=== PATIENT | female | born 1980 | race Caucasian/White ===

== ENCOUNTER 2018-02-15 08:23 | Emergency (ER) | payer SELFPAY ==
[2018-02-15] MEDS ORDERED: DICYCLOMINE HCL 20 MG TABLET PO ONE (09:18)
--- NOTE | 2018-02-15 09:20 | ER Document Report ---
ED Medical Screen (RME) - General Chief Complaint: Abdominal Pain Stated Complaint: ABDOMINAL PAIN Time Seen by Provider: 02/15/18 09:13 Notes: Patient is a 37-year-old female that presents to the emergency department for chief complaint of lower abdominal pain. Patient states that this started yesterday, when she was at work, sharp pain in the mid lower abdomen, suprapubic region, but it has been ongoing since then. Denies nausea, vomiting or diarrhea or urinary symptoms. 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 ROS: Other than noted above, the 12 point review of systems was reviewed with the patient and were negative, all pertinent findings are included in the HPI. PHYSICAL EXAMINATION: Vital signs reviewed. GENERAL: Well-appearing, well-nourished and in no acute distress. HEAD: Atraumatic, normocephalic. EYES: Pupils equal round extraocular movements intact, conjunctiva are normal. ENT: Nares patent NECK: Normal range of motion CV: Heart regular rate and rhythm LUNGS: No respiratory distress Musculoskeletal: Normal range of motion NEUROLOGICAL: Normal speech PSYCH: Normal mood, normal affect. MDM: Patient seen and examined for rapid initial assessment. Vital signs reviewed. A comprehensive ED assessment and evaluation of the patient, analysis of test results and completion of the medical decision making process will be conducted by additional ED providers. *Note is created using voice recognition software and may contain spelling, syntax or grammatical errors. TRAVEL OUTSIDE OF THE [place] IN LAST 30 DAYS: No - Related Data Allergies/Adverse Reactions: No Known Allergies Allergy (Verified 02/15/18 09:17) Past Medical History - Social History Chew tobacco use (# tins/day): No Frequency of alcohol use: None Drug Abuse: None - Past Medical History Cardiac Medical History: Denies: Hx Coronary Artery Disease Pulmonary Medical History: Denies: Hx Asthma Neurological Medical History: Reports: Hx Migraine Renal/ Medical History: Denies: Hx Peritoneal Dialysis Malignancy Medical History: Reports: Hx Cervical Cancer Past Surgical History: Reports: Hx Hysterectomy - Still has her ovaries - Immunizations Hx Diphtheria, Pertussis, Tetanus Vaccination: Yes Physical Exam - Vital signs Vitals: Temp Pulse Resp BP Pulse Ox 97.6 F 81 18 134/90 H 97 02/15/18 08:29 02/15/18 08:29 02/15/18 08:29 02/15/18 08:29 02/15/18 08:29 Course - Vital Signs Vital signs: Temp Pulse Resp BP Pulse Ox 97.6 F 81 18 134/90 H 97 02/15/18 08:29 02/15/18 08:29 02/15/18 08:29 02/15/18 08:29 02/15/18 08:29
[2018-02-15 10:05] LABS: ABSOLUTE BASOPHILS # (AUTO) 0.1 10^3/uL (0.0-0.2); ABSOLUTE EOSINOPHILS # (AUTO) 0.1 10^3/uL (0.0-0.6); ABSOLUTE LYMPHOCYTES (AUTO) 1.9 10^3/uL (0.5-4.7); ABSOLUTE MONOCYTES (AUTO) 0.6 10^3/uL (0.1-1.4); ABSOLUTE NEUT (AUTO) 3.8 10^3/uL (1.7-8.2); EOSINOPHILS % (AUTO) 1.7 % (0-6); HEMATOCRIT 43.6 % (36.0-47.0); LYMPHOCYTES % (AUTO) 29.6 % (13-45); MEAN CORPUSCULAR HEMOGLOBIN 32.3 pg (27.0-33.4); MEAN CORPUSCULAR HGB CONC 34.5 g/dL (32.0-36.0); MEAN CORPUSCULAR VOLUME 94 fl (80-97); MONOCYTES % (AUTO) 8.7 % (3-13); PLATELET COUNT 302 10^3/uL (150-450); RED BLOOD COUNT 4.65 10^6/uL (3.72-5.28); RED CELL DISTRIBUTION WIDTH 12.8 % (11.5-14.0); TOTAL CELLS COUNTED % (AUTO) 100 %; WHITE BLOOD COUNT 6.4 10^3/uL (4.0-10.5)
--- NOTE | 2018-02-15 10:16 | ER Document Report ---
ED General - General Chief Complaint: Abdominal Pain Stated Complaint: ABDOMINAL PAIN Time Seen by Provider: 02/15/18 09:13 Mode of Arrival: Ambulatory Information source: Patient Notes: 37-year-old female presents emergency department with complaints of lower abdominal pain. She states that it started yesterday at work. She describes the pain as a sharp and stabbing sensation in the suprapubic area. She denies any radiation of the pain. She denies any leg eating or exacerbating factors. She denies any associated nausea, vomiting, diarrhea, dysuria, hematuria, increased urgency, increased frequency, vaginal bleeding, vaginal discharge. Patient states that she has had a hysterectomy. TRAVEL OUTSIDE OF THE [place] IN LAST 30 DAYS: No - HPI Onset: Yesterday Onset/Duration: Sudden Quality of pain: Stabbing, Throbbing Severity: Moderate Associated symptoms: None Exacerbated by: Denies Relieved by: Denies Similar symptoms previously: No Recently seen / treated by doctor: No - Related Data Allergies/Adverse Reactions: No Known Allergies Allergy (Verified 02/15/18 09:17) Past Medical History - General Information source: Patient - Social History Smoking Status: Current Every Day Smoker Chew tobacco use (# tins/day): No Frequency of alcohol use: None Drug Abuse: None Family History: Reviewed & Not Pertinent Patient has suicidal ideation: No Patient has homicidal ideation: No - Past Medical History Cardiac Medical History: Denies: Hx Coronary Artery Disease Pulmonary Medical History: Denies: Hx Asthma Neurological Medical History: Reports: Hx Migraine Renal/ Medical History: Denies: Hx Peritoneal Dialysis Malignancy Medical History: Reports: Hx Cervical Cancer Past Surgical History: Reports: Hx Hysterectomy - Still has her ovaries - Immunizations Hx Diphtheria, Pertussis, Tetanus Vaccination: Yes Review of Systems - Review of Systems Constitutional: No symptoms reported EENT: No symptoms reported Cardiovascular: No symptoms reported Respiratory: No symptoms reported Gastrointestinal: Abdominal pain Genitourinary: No symptoms reported Female Genitourinary: No symptoms reported Musculoskeletal: No symptoms reported Skin: No symptoms reported Hematologic/Lymphatic: No symptoms reported Neurological/Psychological: No symptoms reported -: Yes All other systems reviewed and negative Physical Exam - Vital signs Vitals: Temp Pulse Resp BP Pulse Ox 97.6 F 81 18 134/90 H 97 02/15/18 08:29 02/15/18 08:29 02/15/18 08:29 02/15/18 08:29 02/15/18 08:29 - Notes Notes: PHYSICAL EXAMINATION: GENERAL: Well-appearing, well-nourished and in no acute distress. HEAD: Atraumatic, normocephalic. EYES: Pupils equal round and reactive to light, extraocular movements intact, conjunctiva are normal. ENT: Nares patent, oropharynx clear without exudates. Moist mucous membranes. NECK: Normal range of motion, supple without lymphadenopathy LUNGS: Breath sounds clear to auscultation bilaterally and equal. No wheezes rales or rhonchi. HEART: Regular rate and rhythm without murmurs ABDOMEN: Soft, suprapubic tenderness to palpatoin. No rebound or guarding. Female : deferred Musculoskeletal: Normal range of motion, no pitting or edema. No cyanosis. NEUROLOGICAL: Cranial nerves grossly intact. Normal speech, normal gait. Normal sensory, motor exams PSYCH: Normal mood, normal affect. SKIN: Warm, Dry, normal turgor, no rashes or lesions noted. Course - Re-evaluation Re-evalutation: 02/15/18 12:49 Patient is complaining of being hungry. She still having her abdominal pain. I told the patient that she cannot eat until we further assess her. A CT of the abdomen pelvis was ordered. Patient wants to leave AGAINST MEDICAL ADVICE now. Patient states that she is hungry and wants to go eat. Patient is competent to make medical decisions. She understands the risks of leaving AGAINST MEDICAL ADVICE. She understands that her condition may worsen or she may . Patient instructed to take [id number] medication as needed for symptom relief, to follow-up with her primary care physician this week, and to return for worsening symptoms. - Vital Signs Vital signs: Temp Pulse Resp BP Pulse Ox 97.6 F 81 18 134/90 H 97 02/15/18 08:29 02/15/18 08:29 02/15/18 08:29 02/15/18 08:29 02/15/18 08:29 - Laboratory Result Diagrams: 02/15/18 09:32 02/15/18 09:32 Laboratory results interpreted by me: 02/15/18 09:32 Calcium 10.3 H Discharge - Discharge Clinical Impression: Abdominal pain Qualifiers: Abdominal location: lower abdomen, unspecified Qualified Code(s): R10.30 - Lower abdominal pain, unspecified Disposition: AGAINST MEDICAL ADVICE
[2018-02-15 10:20] LABS: ALANINE AMINOTRANSFERASE 14 U/L (9-52); ALBUMIN 4.8 g/dL (3.5-5.0); ALKALINE PHOSPHATASE 39 U/L (38-126); ANION GAP 12 (5-19); ASPARTATE AMINO TRANSFERASE 19 U/L (14-36); BILIRUBIN,DIRECT 0.3 mg/dL (0.0-0.4); BLOOD UREA NITROGEN 13 mg/dL (7-20); CALCIUM 10.3 mg/dL (8.4-10.2); CARBON DIOXIDE 28 mmol/L (22-30); CHLORIDE 104 mmol/L (98-107); GLUCOSE 95 mg/dL (75-110); LIPASE 58.1 U/L (23-300); POTASSIUM 4.8 mmol/L (3.6-5.0); SODIUM 143.7 mmol/L (137-145); TOTAL PROTEIN 7.9 g/dL (6.3-8.2)
[2018-02-15 10:27] LABS: APPEARANCE,URINE SLIGHTLY-CLOUDY; BILIRUBIN,URINE NEGATIVE (NEGATIVE); COLOR,URINE YELLOW; GLUCOSE, URINE NEGATIVE (NEGATIVE); KETONES,URINE NEGATIVE (NEGATIVE); LEUKOCYTE ESTERASE,URINE NEGATIVE (NEGATIVE); NITRITE,URINE NEGATIVE (NEGATIVE); PROTEIN,URINE NEGATIVE (NEGATIVE); URINE SPECIFIC GRAVITY 1.012; UROBILINOGEN,URINE NEGATIVE mg/dL (<2.0)
--- NOTE | 2018-02-15 14:40 | RADIOLOGY REPORT (SQ) ---
EXAM DESCRIPTION: CT ABD/PELVIS WITH IV ONLY COMPLETED DATE/TIME: 02/15/2018 1:44 pm REASON FOR STUDY: abdominal pain COMPARISON: 09/20/2015 TECHNIQUE: CT scan of the abdomen and pelvis performed using helical scanning technique with dynamic intravenous contrast injection. No oral contrast. Images reviewed with lung, soft tissue, and bone windows. Reconstructed coronal and sagittal MPR images reviewed. Delayed images for evaluation of the urinary system also acquired. All images stored on PACS. All CT scanners at this facility use dose modulation, iterative reconstruction, and/or weight based d osing when appropriate to reduce radiation dose to as low as reasonably achievable (ALARA). [facility]: Dose Right [facility]: CareDose [facility]: Dose Right [facility]: Teradose 4D [facility]: [place] CONTRAST TYPE AND DOSE: contrast/concentration: Isovue 350.00 mg/ml; Total Contrast Delivered: 87.0 ml; Total Saline Delivered: 45.1 ml RENAL FUNCTION: BUN 13; creatinine 0.81 RADIATION DOSE: CT Rad equipment meets quality standard of care and radiation dose reduction techniq ues were employed. CTDIvol: 7.8 - 10.9 mGy. DLP: 1030 mGy-cm.. LIMITATIONS: None. FINDINGS: LOWER CHEST: No significant findings. No nodules or infiltrates. LIVER: Normal size. No masses. No dilated ducts. SPLEEN: Normal size. No focal lesions. PANCREAS: No masses. No significant calcifications. No adjacent inflammation or peripancreatic fluid collections. Pancreatic duct not dilated. GALLBLADDER: No identified stones by CT criteria. No inflammatory changes to suggest cholecystitis. ADRENAL GLANDS: No significant masses or asymmetry. RIGHT KIDNEY AND URETER: No solid masses. No significant calcifications. No hydronephrosis or hyd roureter. LEFT KIDNEY AND URETER: No solid masses. No significant calcifications. No hydronephrosis or hydr oureter. AORTA AND VESSELS: No aneurysm. No dissection. Renal arteries, SMA, celiac without stenosis. RETROPERITONEUM: No retroperitoneal adenopathy, hemorrhage or masses. BOWEL AND PERITONEAL CAVITY: No masses or inflammatory changes. No free fluid or peritoneal masses. APPENDIX: Normal. PELVIS: No free fluid. No lymphadenopathy. The bladder appears normal for modality. ABDOMINAL WALL: No masses. No hernias. BONES: No significant or acute findings. OTHER: No other significant finding. IMPRESSION: NO SIGNIFICANT OR ACUTE FINDING IN THE ABDOMEN OR PELVIS ON CT SCAN WITH IV CONTRAST. TECHNICAL DOCUMENTATION: JOB ID: [id number] Quality ID # [id number]: Final reports with documentation of one or more dose reduction techniques (e.g., Au tomated exposure control, adjustment of the mA and/or kV according to patient size, use of iterative reconstruction technique) 2010 [employer]- All Rights Reserved Reading location - IP/workstation name: [email or web address]
[2018-02-15 15:26] VITALS: BP 120/80
== END 2018-02-15 15:42 | disposition home or self-care (01) ==
LOC: ER 08:23
DX: R10.30 Lower abdominal pain, unspecified (principal); F17.200 Nicotine dependence, unspecified, uncomplicated; Z90.710 Acquired absence of both cervix and uterus; Z85.41 Personal history of malignant neoplasm of cervix uteri
CPT/HCPCS: 99284; 36415; 83690; 85025; 81025; 80053; 81001; 74177; J3490

== ENCOUNTER 2018-02-24 05:42 | Emergency (ER) | payer SELFPAY ==
[2018-02-24] MEDS ORDERED: LIDOCAINE 2% VISCOUS SOLN 20 ML UDCUP PO ONE (06:33)
[2018-02-24] MEDS ORDERED: METOCLOPRAMIDE HCL ORAL SOLN 10 MG/10 ML UDCUP PO ONE (06:33)
[2018-02-24] MEDS ORDERED: MAG HYDROX/AL HYDROX/SIMETH SUSP 30 ML UDCUP PO ONE (06:33)
--- NOTE | 2018-02-24 06:56 | EKG REPORT ---
SEVERITY:- NORMAL ECG - SINUS RHYTHM : Confirmed by: Gayb De Jesus 24-Feb-2018 06:55:53
--- NOTE | 2018-02-24 07:29 | ER Document Report ---
ED General - General Chief Complaint: Chest Pain Stated Complaint: CHEST PAIN, POSSIBLE HEART BURN Time Seen by Provider: 02/24/18 06:25 TRAVEL OUTSIDE OF THE [place] IN LAST 30 DAYS: No - HPI Patient complains to provider of: Heartburn Onset: Other - 37-year-old female who is a every other day for beer drinker as well as a cigarette smoker the presents for evaluation of what she describes as heartburn over the last week. She has had a couple episodes of heartburn in the past none of which have been this bad, she notes that 4 days ago it did make her feel like she had to vomit as well. Her symptoms worsened yesterday and the symptoms persisted despite her starting to take Prilosec 3 days ago. She not take anything to try and help with this other than that. She is never treated her heartburn in the past. She never been seen for this before. She denies any chest pain, shortness of breath, lightheadedness, fevers, chills, rashes diarrhea constipation or dysuria. - Related Data Allergies/Adverse Reactions: No Known Allergies Allergy (Verified 02/15/18 09:17) Past Medical History - General Information source: Patient - Social History Smoking Status: Current Every Day Smoker Smoking Education Provided: Yes Frequency of alcohol use: Occasional Drug Abuse: None Family History: Reviewed & Not Pertinent Patient has suicidal ideation: No Patient has homicidal ideation: No - Past Medical History Cardiac Medical History: Denies: Hx Coronary Artery Disease Pulmonary Medical History: Denies: Hx Asthma Neurological Medical History: Reports: Hx Migraine Renal/ Medical History: Denies: Hx Peritoneal Dialysis Malignancy Medical History: Reports: Hx Cervical Cancer Past Surgical History: Reports: Hx Hysterectomy - Immunizations Hx Diphtheria, Pertussis, Tetanus Vaccination: Yes Review of Systems - Review of Systems -: Yes All other systems reviewed and negative Physical Exam - Vital signs Vitals: Temp Pulse Resp BP Pulse Ox 97.7 F 81 16 125/99 H 99 02/24/18 05:50 02/24/18 05:50 02/24/18 05:50 02/24/18 05:50 02/24/18 05:50 - General General appearance: Appears well, Alert - HEENT Head: Normocephalic, Atraumatic Eyes: Normal Pupils: PERRL - Respiratory Respiratory status: No respiratory distress Chest status: Nontender Breath sounds: Normal Chest palpation: Normal - Cardiovascular Rhythm: Regular Heart sounds: Normal auscultation Murmur: No - Abdominal Inspection: Normal Distension: No distension Tenderness: Tender - Tenderness in the left upper quadrant - Back Back: Normal, Nontender - Extremities General upper extremity: Normal inspection, Nontender, Normal color, Normal ROM , Normal temperature General lower extremity: Normal inspection, Nontender, Normal color, Normal ROM , Normal temperature, Normal weight bearing. No: Daquan's sign - Neurological Neuro grossly intact: Yes Cognition: Normal Orientation: AAOx4 Jhon Coma Scale Eye Opening: Spontaneous [place] Coma Scale Verbal: Oriented Jhon Coma Scale Motor: Obeys Commands [place] Coma Scale Total: 15 Speech: Normal Motor strength normal: LUE, RUE, LLE, RLE Sensory: Normal - Psychological Associated symptoms: Normal affect, Normal mood Course - Re-evaluation Re-evalutation: 02/24/18 08:10 This 37-year-old woman presents for evaluation of probable reflux. She notes that she is been using Prilosec which has not helped that much. She is a smoker and a drinker. She is never had any cardiac events in the past, has no other health problems that she knows of. On examination she is tender left upper quadrant, has no chest tenderness has normal cardiopulmonary examination. I discussed with the patient the potential for this to represent underlying cardiac etiology, to evaluate such we would do IV x-ray EKG. She notes that she does not wish to pursue this at this time, she would like to treat this is reflux. We will administer GI cocktail and reassess. Following a ministration a GI cocktail patient says that her symptoms have improved greatly. She would like to try treatment in the outpatient setting and defer any further workup at this time, we did discuss that this could represent a more serious underlying condition and that we have not thoroughly evaluated any other causes such as but not limited to cardiac etiology or pulmonary etiology. We will plan for this patient undergo discharge with return precautions and follow-up. She will be given a prescription for Zantac as well as Carafate and Zofran as needed for her nausea. She agreed to return in case of any worsening. Also I counseled her on the importance of alcohol cessation as well as cigarette smoking cessation. - Vital Signs Vital signs: Temp Pulse Resp BP Pulse Ox 97.7 F 81 16 125/99 H 99 02/24/18 05:50 02/24/18 05:50 02/24/18 05:50 02/24/18 05:50 02/24/18 05:50 Discharge - Discharge Clinical Impression: Reflux esophagitis, Tobacco use Gastritis Qualifiers: Gastritis type: unspecified gastritis Chronicity: unspecified Gastritis bleeding: without bleeding Qualified Code(s): K29.70 - Gastritis, unspecified, without bleeding Condition: Good Disposition: HOME, SELF-CARE Instructions: Esophagitis ([facility]), Reflux Disease (GERD) ([facility]), Sucralfate ([facility]) , Antacid Therapy ([facility]) Additional Instructions: Your seen today in the emergency department for your burning in the base of your throat making you feel nauseous. You are given medication to help with reflux. It seems to help. You should use the medications prescribed to you to help with your reflux symptoms. In case of any worsening chest pain, shortness of breath, any change in your symptoms please return to the emergency room as it could be a more serious condition. You should avoid alcohol while you are having the symptoms. You should also consider stop smoking. Schedule appointment with your primary physician in the coming week for ongoing management of your reflux symptoms. Prescriptions: Ondansetron [Zofran Odt 4 mg Tablet] 1 - 2 tab PO Q4HP PRN #10 tab.rapdis PRN Reason: Ranitidine HCl [Zantac 75 mg Tablet] 75 mg PO DAILY 30 Days #30 tablet Sucralfate [Carafate] 1 gm PO TID 20 Days #60 oral.susp Forms: Smoking Cessation Education, Return to Work
[2018-02-24 07:58] VITALS: BP 122/80
== END 2018-02-24 07:59 | disposition home or self-care (01) ==
LOC: ER 05:42
DX: K21.0 Gastro-esophageal reflux disease with esophagitis (principal); K29.70 Gastritis, unspecified, without bleeding; R07.9 Chest pain, unspecified; R12 Heartburn; F17.200 Nicotine dependence, unspecified, uncomplicated; Z90.710 Acquired absence of both cervix and uterus; Z85.41 Personal history of malignant neoplasm of cervix uteri
CPT/HCPCS: 93005; 99284; 93010; J3490

== ENCOUNTER 2018-04-14 08:11 | Observation (INO) | payer SELFPAY ==
[2018-04-14] MEDS ORDERED: ONDANSETRON HCL INJ/PF 4 MG/2 ML SDV IV ONE (08:51)
[2018-04-14] MEDS ORDERED: MORPHINE SULFATE 10 MG/ML INJ IV ONE (08:52)
[2018-04-14 09:11] LABS: ABSOLUTE BASOPHILS # (AUTO) 0.1 10^3/uL (0.0-0.2); ABSOLUTE EOSINOPHILS # (AUTO) 0.1 10^3/uL (0.0-0.6); ABSOLUTE LYMPHOCYTES (AUTO) 1.8 10^3/uL (0.5-4.7); ABSOLUTE MONOCYTES (AUTO) 0.6 10^3/uL (0.1-1.4); ABSOLUTE NEUT (AUTO) 3.3 10^3/uL (1.7-8.2); HEMATOCRIT 42.9 % (36.0-47.0); HEMOGLOBIN 14.8 g/dL (12.0-15.5); LYMPHOCYTES % (AUTO) 30.6 % (13-45); MEAN CORPUSCULAR HEMOGLOBIN 31.9 pg (27.0-33.4); MEAN CORPUSCULAR HGB CONC 34.4 g/dL (32.0-36.0); MEAN CORPUSCULAR VOLUME 93 fl (80-97); MONOCYTES % (AUTO) 9.9 % (3-13); PLATELET COUNT 277 10^3/uL (150-450); RED BLOOD COUNT 4.63 10^6/uL (3.72-5.28); RED CELL DISTRIBUTION WIDTH 12.8 % (11.5-14.0); SEGMENTED NEUTROPHILS % (AUTO) 56.5 % (42-78); TOTAL CELLS COUNTED % (AUTO) 100 %; WHITE BLOOD COUNT 5.8 10^3/uL (4.0-10.5)
[2018-04-14 09:26] LABS: ALANINE AMINOTRANSFERASE 16 U/L (9-52); ALBUMIN 4.4 g/dL (3.5-5.0); ALKALINE PHOSPHATASE 36 U/L (38-126); ANION GAP 8 (5-19); ASPARTATE AMINO TRANSFERASE 17 U/L (14-36); BILIRUBIN,DIRECT 0.3 mg/dL (0.0-0.4); BILIRUBIN,TOTAL 0.6 mg/dL (0.2-1.3); BLOOD UREA NITROGEN 13 mg/dL (7-20); CALCIUM 9.9 mg/dL (8.4-10.2); CARBON DIOXIDE 24 mmol/L (22-30); CHLORIDE 107 mmol/L (98-107); GLUCOSE 100 mg/dL (75-110); LIPASE 93.2 U/L (23-300); POTASSIUM 4.7 mmol/L (3.6-5.0)
[2018-04-14] MEDS ORDERED: SUCRALFATE SUSP 1 GM/10 ML UDCUP PO ONE (10:13)
[2018-04-14] MEDS ORDERED: FAMOTIDINE INJ/PF 20 MG/2 ML SDV IV ONE (10:13)
[2018-04-14] MEDS ORDERED: NORMAL SALINE 1000 ML 1,000 ML IV ONE ×2 (10:21→15:04)
[2018-04-14 11:51] LABS: APPEARANCE,URINE CLOUDY; BILIRUBIN,URINE NEGATIVE (NEGATIVE); COLOR,URINE YELLOW; GLUCOSE, URINE NEGATIVE (NEGATIVE); KETONES,URINE NEGATIVE (NEGATIVE); LEUKOCYTE ESTERASE,URINE NEGATIVE (NEGATIVE); NITRITE,URINE NEGATIVE (NEGATIVE); PROTEIN,URINE NEGATIVE (NEGATIVE); URINE SPECIFIC GRAVITY 1.008; UROBILINOGEN,URINE NEGATIVE mg/dL (<2.0)
[2018-04-14] MEDS ORDERED: SUCCINYLCHOLINE CHLORIDE INJ 200 MG/10 ML VIAL ONE (12:07)
[2018-04-14] MEDS ORDERED: ROCURONIUM BROMIDE INJ 50 MG/5 ML VIAL IV ONE (12:07)
--- NOTE | 2018-04-14 12:42 | RADIOLOGY REPORT (SQ) ---
EXAM DESCRIPTION: CT ABD/PELVIS WITH IV ORAL COMPLETED DATE/TIME: 04/14/2018 12:13 pm REASON FOR STUDY: RLQ pain COMPARISON: 02/15/2018 TECHNIQUE: CT scan of the abdomen and pelvis performed using helical scanning technique with dynamic intravenous contrast injection. No oral contrast. Images reviewed with lung, soft tissue, and bone windows. Reconstructed coronal and sagittal MPR images reviewed. Delayed images for evaluation of the urinary system also acquired. All images stored on PACS. All CT scanners at this facility use dose modulation, iterative reconstruction, and/or weight based d osing when appropriate to reduce radiation dose to as low as reasonably achievable (ALARA). [facility]: Dose Right [facility]: CareDose [facility]: Dose Right [facility]: Teradose 4D [facility]: [employer] CONTRAST TYPE AND DOSE: contrast/concentration: Isovue 350.00 mg/ml; Total Contrast Delivered: 88.0 ml; Total Saline Delivered: 70.0 ml RENAL FUNCTION: None required. The patient is less than 50 years old. RADIATION DOSE: CT Rad equipment meets quality standard of care and radiation dose reduction techniq ues were employed. CTDIvol: 8.6 - 11.9 mGy. DLP: 1028 mGy-cm.. LIMITATIONS: None. FINDINGS: LOWER CHEST: No significant findings. No nodules or infiltrates. LIVER: Normal size. No masses. No dilated ducts. SPLEEN: Normal size. No focal lesions. PANCREAS: No masses. No significant calcifications. No adjacent inflammation or peripancreatic fluid collections. Pancreatic duct not dilated. GALLBLADDER: Small gallstones in the gallbladder fundus with mild gallbladder wall thickening and per icholecystic fluid. The common bile duct is prominent to the ampulla without evidence of obstructing lesion. ADRENAL GLANDS: No significant masses or asymmetry. RIGHT KIDNEY AND URETER: No solid masses. No significant calcifications. No hydronephrosis or hyd roureter. LEFT KIDNEY AND URETER: No solid masses. No significant calcifications. No hydronephrosis or hydr oureter. AORTA AND VESSELS: No aneurysm. No dissection. Renal arteries, SMA, celiac without stenosis. RETROPERITONEUM: No retroperitoneal adenopathy, hemorrhage or masses. BOWEL AND PERITONEAL CAVITY: No masses or inflammatory changes. No free fluid or peritoneal masses. APPENDIX: Normal. PELVIS: No mass. Status posthysterectomy. No free fluid. Normal bladder. Multiple small cysts in t he left ovary. ABDOMINAL WALL: No masses. No hernias. BONES: No significant or acute findings. OTHER: No other significant finding. IMPRESSION: 1. Small gallstones in the gallbladder fundus with mild gallbladder wall thickening and pericholecystic fluid. Findings are concerning for acute cholecystitis. The common bile duct is pr ominent to the ampulla without evidence of obstructing lesion. 2. Normal appendix in the right lower quadrant. TECHNICAL DOCUMENTATION: JOB ID: [id number] Quality ID # [id number]: Final reports with documentation of one or more dose reduction techniques (e.g., Au tomated exposure control, adjustment of the mA and/or kV according to patient size, use of iterative reconstruction technique) 2010 [employer]- All Rights Reserved Reading location - IP/workstation name: [email or web address]
--- NOTE | 2018-04-14 13:20 | EKG REPORT ---
SEVERITY:- NORMAL ECG - SINUS RHYTHM : Confirmed by: Marcin Quezada MD 14-Apr-2018 13:20:07
--- NOTE | 2018-04-14 14:35 | RADIOLOGY REPORT (SQ) ---
EXAM DESCRIPTION: U/S ABDOMEN LTD W/DOPPLER COMPLETED DATE/TIME: 04/14/2018 2:25 pm REASON FOR STUDY: right upper quadrant pain COMPARISON: None. TECHNIQUE: Dynamic and static grayscale images acquired of the abdomen and recorded on PACS. Waleo debbie selected color Doppler and spectral images recorded. LIMITATIONS: None. FINDINGS: PANCREAS: No masses. Visualized pancreatic duct normal caliber. LIVER: No masses. Echotexture normal. LIVER VASCULATURE: Normal directional flow of the main portal vein and hepatic veins. GALLBLADDER: Gallstones. The largest shadowing calculus in the gallbladder neck measures 1.3 cm. Ge neralized gallbladder wall thickening. Small amount of pericholecystic fluid. ULTRASOUND-DETECTED NEWTON'S SIGN: Negative. INTRAHEPATIC DUCTS AND COMMON DUCT: CBD and intrahepatic ducts normal caliber. No filling defects. INFERIOR VENA CAVA: Normal flow. AORTA: No aneurysm. RIGHT KIDNEY: Normal size. Normal echogenicity. No solid or suspicious masses. No hydronephrosis. No calcifications. PERITONEAL AND RIGHT PLEURAL SPACE: No ascites or effusions. OTHER: No other significant findings. IMPRESSION: GALLSTONES. THE LARGEST CALCULUS IN THE GALLBLADDER NECK MEASURES 1.3 CM. GALLBLADDER WALL THICKENING AND PERICHOLECYSTIC FLUID. FINDINGS CONCERNING FOR ACUTE CHOLECYSTITIS. TECHNICAL DOCUMENTATION: JOB ID: [id number] [employer] All Rights Reserved Reading location - IP/workstation name: [email or web address]
--- NOTE | 2018-04-14 15:19 | ER Document Report ---
ED General - General Chief Complaint: Abdominal Pain Stated Complaint: CHEST PAIN/VOMITING Time Seen by Provider: 04/14/18 08:33 Notes: Patient is a 37-year-old female presents to the emergency department complaining of generalized right lower abdominal pain that started last night. Patient states she also vomited 7 times is denying any blood in her vomit. Patient is denying any diarrhea or fever. Patient is denying any dysuria or vaginal discharge. Past medical history: GERD, migraines Medications: Zantac, Prilosec, Excedrin Migraine, Pepto-Bismol Allergies: Bleach Surgical history: Partial hysterectomy to include her uterus TRAVEL OUTSIDE OF THE [place] IN LAST 30 DAYS: No - Related Data Allergies/Adverse Reactions: No Known Allergies Allergy (Verified 04/14/18 16:25) Past Medical History - General Information source: Patient - Social History Smoking Status: Unknown if Ever Smoked Family History: Reviewed & Not Pertinent Patient has suicidal ideation: No Patient has homicidal ideation: No - Past Medical History Cardiac Medical History: Denies: Hx Coronary Artery Disease Pulmonary Medical History: Denies: Hx Asthma Neurological Medical History: Reports: Hx Migraine Renal/ Medical History: Denies: Hx Peritoneal Dialysis Malignancy Medical History: Reports: Hx Cervical Cancer Past Surgical History: Reports: Hx Hysterectomy - Immunizations Hx Diphtheria, Pertussis, Tetanus Vaccination: Yes Review of Systems - Review of Systems Constitutional: See HPI EENT: No symptoms reported Cardiovascular: No symptoms reported Respiratory: No symptoms reported Gastrointestinal: See HPI Genitourinary: See HPI Female Genitourinary: See HPI Musculoskeletal: No symptoms reported Skin: No symptoms reported Hematologic/Lymphatic: No symptoms reported Neurological/Psychological: No symptoms reported Physical Exam - Vital signs Vitals: Temp Pulse Resp BP Pulse Ox 97.9 F 64 20 124/84 99 04/14/18 08:22 04/14/18 08:22 04/14/18 08:22 04/14/18 08:22 04/14/18 08:22 - Notes Notes: GENERAL: Alert, interacts well. No acute distress. HEAD: Normocephalic, atraumatic. EYES: Pupils equal, round, and reactive to light. Extraocular movements intact. ENT: Oral mucosa moist, tongue midline. NECK: Full range of motion. Supple. Trachea midline. LUNGS: Clear to auscultation bilaterally, no wheezes, rales, or rhonchi. No respiratory distress. HEART: Regular rate and rhythm. No murmur ABDOMEN: Soft, Non-distended. Bowel sounds present in all 4 quadrants. Generalized to right lower abdominal pain. No Nieto sign noted although minor epigastric abdominal pain noted. EXTREMITIES: Moves all 4 extremities spontaneously. No edema, normal radial and dorsalis pedis pulses bilaterally. No cyanosis. BACK: no cervical, thoracic, lumbar midline tenderness. No saddle anesthesia, normal distal neurovascular exam. NEUROLOGICAL: Alert and oriented x3. Normal speech. cranial nerves II through XII grossly intact PSYCH: Normal affect, normal mood. SKIN: Warm, dry, normal turgor. No rashes or lesions noted. Course - Re-evaluation Re-evalutation: Patient initially has a chief complaint of right lower abdominal pain and some minor epigastric pain. CT was ordered to rule out appendicitis. CT shows signs of cholecystitis. Due to patient's liver function test being within normal limits ultrasound ordered to compare and truly rule out cholecystitis. Patient has continued to be n.p.o. in the emergency room and states she overall feels a lot better. Awaiting results of ultrasound. 04/14/18 15:16 Discussed ultrasound results with surgeon Dr. Monk concerns for cholecystitis. He states he will come to the emergency room to see the patient. - Vital Signs Vital signs: Temp Pulse Resp BP Pulse Ox 98.8 F 80 18 116/66 100 04/15/18 16:14 04/15/18 18:34 04/15/18 18:34 04/15/18 16:14 04/15/18 18:34 - Laboratory Result Diagrams: 04/14/18 09:02 04/14/18 09:02 Laboratory results interpreted by me: 04/14/18 09:02 Alkaline Phosphatase 36 L Discharge - Discharge Clinical Impression: Cholecystitis Condition: Stable Disposition: ADMITTED INPATIENT Admitting Provider: Surgicalist - Dr. Monk Unit Admitted: OR
[2018-04-14] MEDS ORDERED: CEFAZOLIN 1 GM/D5W RTU 1 GM/50 ML RTUPB IV ONE (15:28)
--- NOTE | 2018-04-14 15:39 | PDOC H&P ---
History of Present Illness Patient complains of: Abdominal pain History of Present Illness: JOLEEN MONTENEGRO is a 37 year old female Presents to the emergency department at 08 100 this morning, [facility] emergency department, via ground rescue complaining of worsening abdominal pain started last night after eating associated with epigastric tenderness and some anorexia. No nausea or vomiting. She has had several episodes of similar pain not as intense over the last several months. No family history of gallbladder disease. She denies history of trauma or previous gastrointestinal problems. She does have a history of GERD. She was evaluated in the emergency department where she was found to have a CT scan of the abdomen and pelvis with IV and oral contrast showing a slightly distended gallbladder with gallbladder wall thickening. Her tenderness in the emergency department was more right lower quadrant. No pelvic or adnexal pathology seen on scan. Confirmatory ultrasonography demonstrated gallstones with normal common bile duct. Surgery was consulted and she was advised admission Past Medical History Past Medical History: Smoking abuse, chronic headaches, GERD Cardiac Medical History: Denies: Coronary Artery Disease Pulmonary Medical History: Denies: Asthma Neurological Medical History: Reports: Migraine Malignancy Medical History: Reports: Cervical Cancer Past Surgical History Past Surgical History: Reports: Hysterectomy, Other - Partial hysterectomy Social History Smoking Status: Current Every Day Smoker Frequency of Alcohol Use: Social Family History Family History: Reviewed & Not Pertinent Parental Family History Reviewed: Yes Children Family History Reviewed: Yes Sibling(s) Family History Reviewed.: Yes Medication/Allergy Home Medications: Ondansetron [Zofran Odt 4 mg Tablet] 1 - 2 tab PO Q4HP PRN #10 tab.rapdis 02/24/18 Ranitidine HCl [Zantac 75 mg Tablet] 75 mg PO DAILY 30 Days #30 tablet 02/24/18 Sucralfate [Carafate] 1 gm PO TID 20 Days #60 oral.susp 02/24/18 Allergies/Adverse Reactions: No Known Allergies Allergy (Verified 04/14/18 08:25) Review of Systems Constitutional: PRESENT: as per HPI Eyes: PRESENT: other - Occasionally has bloodshot eye on the left. ABSENT: visual disturbances Cardiovascular: ABSENT: chest pain, dyspnea on exertion, edema, orthropnea, palpitations Gastrointestinal: PRESENT: as per HPI. ABSENT: abdominal pain, constipation, diarrhea, hematemesis, hematochezia, nausea, vomiting Psychiatric: ABSENT: anxiety, depression, homidical ideation, suicidal ideation Endocrine: ABSENT: cold intolerance, heat intolerance, polydipsia, polyuria Physical Exam Vital Signs: Temp Pulse Resp BP Pulse Ox 97.9 F 64 20 124/84 99 04/14/18 08:22 04/14/18 08:22 04/14/18 08:22 04/14/18 08:22 04/14/18 08:22 Intake & Output 04/13/18 04/14/18 04/15/18 06:59 06:59 06:59 Intake Total 1000 Balance 1000 Weight 77.4 kg General appearance: PRESENT: no acute distress Head exam: PRESENT: normocephalic Eye exam: PRESENT: other - Left eye bloodshot from rubbing Mouth exam: PRESENT: dry mucosa Neck exam: PRESENT: full ROM Respiratory exam: PRESENT: rales Pulses: PRESENT: normal carotid pulses, normal radial pulses, normal femoral pulses GI/Abdominal exam: PRESENT: other - Tender in the right upper quadrant in the right lower quadrant with minimal guarding; no distention; bowel sounds hypoactive Rectal exam: PRESENT: deferred Extremities exam: PRESENT: full ROM Neurological exam: PRESENT: alert, awake, oriented to person, oriented to place Psychiatric exam: PRESENT: appropriate affect Results Laboratory Results: 04/14/18 09:02 04/14/18 09:02 04/14/18 04/14/18 04/14/18 09:02 09:02 10:00 WBC 5.8 RBC 4.63 Hgb 14.8 Hct 42.9 MCV 93 MCH 31.9 MCHC 34.4 RDW 12.8 Plt Count 277 Seg Neutrophils % 56.5 Lymphocytes % 30.6 Monocytes % 9.9 Eosinophils % 2.0 Basophils % 1.0 Absolute Neutrophils 3.3 Absolute Lymphocytes 1.8 Absolute Monocytes 0.6 Absolute Eosinophils 0.1 Absolute Basophils 0.1 Sodium 139.0 Potassium 4.7 Chloride 107 Carbon Dioxide 24 Anion Gap 8 BUN 13 Creatinine 0.69 Est GFR ( Amer) > 60 Est GFR (Non-Af Amer) > 60 Glucose 100 Calcium 9.9 Total Bilirubin 0.6 AST 17 ALT 16 Alkaline Phosphatase 36 L Total Protein 7.0 Albumin 4.4 Lipase 93.2 Urine Color YELLOW Urine Appearance CLOUDY Urine pH 6.0 Ur Specific [place] 1.008 Urine Protein NEGATIVE Urine Glucose (UA) NEGATIVE Urine Ketones NEGATIVE Urine Blood NEGATIVE Urine Nitrite NEGATIVE Ur Leukocyte Esterase NEGATIVE Urine WBC (Auto) 1 Impressions: Abdomen/Pelvis CT 04/14/18 00:00 IMPRESSION: 1. Small gallstones in the gallbladder fundus with mild gallbladder wall thickening and pericholecystic fluid. Findings are concerning for acute cholecystitis. The common bile duct is prominent to the ampulla without evidence of obstructing lesion. 2. Normal appendix in the right lower quadrant. Abdomen Ultrasound 04/14/18 12:52 IMPRESSION: GALLSTONES. THE LARGEST CALCULUS IN THE GALLBLADDER NECK MEASURES 1.3 CM. GALLBLADDER WALL THICKENING AND PERICHOLECYSTIC FLUID. FINDINGS CONCERNING FOR ACUTE CHOLECYSTITIS. Assessment & Plan - Diagnosis (1) Cholelithiasis Is this a current diagnosis for this admission?: Yes Plan: Impression: Acute cholecystitis superimposed on chronic secondary to cholelithiasis. Recommendations: 1. Admit to surgical service, keep n.p.o., IV fluids, intravenous antibiotics 2. Proceed with laparoscopic, possible open cholecystectomy, this afternoon, Dr. Monk, general anesthesia. Risks, benefits, and alternatives to the planned procedure explained to the patient including bleeding, infection, bile duct injury, retained common bile duct stone, need for additional. I believe patient understands and agrees to proceed (2) Migraine headache Is this a current diagnosis for this admission?: Yes (3) Smoker Is this a current diagnosis for this admission?: Yes (4) Cholecystitis Is this a current diagnosis for this admission?: Yes - Time Time Spent: 50 to 70 Minutes Critical Time spent with patient: 15-24 minutes Medications reviewed and adjusted accordingly: Yes Anticipated discharge: Home - Inpatient Certification Based on my medical assessment, after consideration of the patient's comorbidities, presenting symptoms, or acuity I expect that the services needed warrant INPATIENT care.: Yes I certify that my determination is in accordance with my understanding of Medicare's requirements for reasonable and necessary INPATIENT services [42 CFR 412.3e].: Yes Medical Necessity: Need For IV Fluids, Need for Pain Control, Need for IV Antibiotics, Need for Surgery
[2018-04-14] MEDS ORDERED: LIDOCAINE 2% INJ-PF (20 MG/ML) 10 ML AMPUL ONE (15:42)
[2018-04-14] MEDS ORDERED: PROPOFOL INJ 200 MG/20 ML VIAL IV ONE (15:43)
[2018-04-14] MEDS ORDERED: SUGAMMADEX SODIUM 200 MG/2 ML SDV IV ONE (15:43)
[2018-04-14] MEDS ORDERED: ONDANSETRON HCL INJ/PF 4 MG/2 ML SDV ONE ×2 (15:43→18:41)
[2018-04-14] MEDS ORDERED: FENTANYL CITRATE INJ/PF 100 MCG/2 ML AMPUL ONE (15:43)
[2018-04-14] MEDS ORDERED: DEXAMETHASONE SOD PHOSPHATE INJ 4 MG/1 ML VIAL ONE (15:43)
[2018-04-14] MEDS ORDERED: MIDAZOLAM 2 MG/2 ML INJ ONE (15:43)
[2018-04-14] MEDS ORDERED: ACETAMINOPHEN 1,000 MG/100 ML RTUPB IV ONE (15:44)
[2018-04-14] MEDS ORDERED: BUPIVACAINE HCL 0.25 % INJ/PF (2.5 MG/1 ML) 30 ML VIAL ONE (16:01)
[2018-04-14] MEDS ORDERED: METOPROLOL TARTRATE PF/INJ 5 MG/5 ML SDV IV ONE (17:18)
[2018-04-14] MEDS ORDERED: MEPERIDINE HCL/PF INJ 25 MG/1 ML DISP.SYRIN IV PRN (17:21)
[2018-04-14] MEDS ORDERED: FENTANYL CITRATE INJ/PF 100 MCG/2 ML AMPUL IV PRN ×3 (17:21)
[2018-04-14] MEDS ORDERED: DIPHENHYDRAMINE HCL 50 MG/ML VIAL IV PRN (17:21)
[2018-04-14] MEDS ORDERED: MORPHINE SULFATE 10 MG/ML INJ IV PRN (17:21)
[2018-04-14] MEDS ORDERED: ONDANSETRON HCL INJ/PF 4 MG/2 ML SDV IV PRN ×2 (17:21→17:59)
[2018-04-14] MEDS ORDERED: PROMETHAZINE HCL INJ 25 MG/1 ML VIAL IV PRN ×2 (17:21)
[2018-04-14] MEDS ORDERED: KETOROLAC TROMETHAMINE 10 MG TABLET PO PRN (17:59)
--- NOTE | 2018-04-14 18:09 | Operative Report ---
Operative Report DATE OF SURGERY: 04/14/18 PREOPERATIVE DIAGNOSIS: Acute cholecystitis with cholelithiasis POSTOPERATIVE DIAGNOSIS: Same OPERATION: Laparoscopic cholecystectomy SURGEON: KENNEY TORIBIO ANESTHESIA: GA TISSUE REMOVED OR ALTERED: Gallbladder COMPLICATIONS: none ESTIMATED BLOOD LOSS: 25 cc INTRAOPERATIVE FINDINGS: See below PROCEDURE: After obtaining informed consent, the patient was taken to the operating room. General Anesthesia was induced; the arms were extended, and the abdomen was exposed, and prepped and draped in a sterile fashion. Instrumentation was set up for laparoscopic cholecystectomy. Surgical plan and surgical timeout were conducted. A vertical incision was made above the umbilicus, and a verres needle was inserted uneventfully into the peritoneal cavity. Pneumoperitoneum was established. The verres needle was removed and a 5 mm trocar was inserted and a 5 mm flexible laparoscope was inserted. Visualization of the peritoneal cavity confirmed safe uneventful entry. Under direct visualization 3 additional 5 mm ports were established, one in the subxiphoid position and second in the subcostal position. The gallbladder is distended, edematous consistent with acute cholecystitis. Adhesions between the gallbladder, gastroduodenal area, and the proximal transverse colon were all taken down using a combination of sharp, and blunt and electrocautery dissection. A grasper was placed on the fundus of the gallbladder and the gallbladder is elevated over the right surface of the liver; a second grasper was used to grasp the infundibulum of the gallbladder. The neck of the gallbladder and junction with the cystic duct was dissected out. There was an enlarged node of Calot low which was cauterized and swept out of the critical area dissection. The Cystic artery was in its usual location medial and cephalad to the cystic duct. The cystic artery was surrounded with a right angle clamp, clipped twice proximally and divided with laparoscopic scissors. Is a small posterior branch which was also clipped and divided. We now opened the triangle of Calot by dividing the peritoneal reflection on both the medial and lateral sides of the cystic duct infundibular junction. The critical view was obtained. Photos were taken. We now milked the cystic duct of any possible stones, clipped the cystic duct approximately 2 times once distally and divided with scissors. The gallbladder was now removed from the undersurface of the liver using hook cautery dissection. Graspers were repositioned and the gallbladder was removed uneventfully from the abdominal cavity through the super umbilical port site incision. The specimen was examined, then passed off to pathology for permanent analysis. We returned to the peritoneal cavity check for bleeding, and evidence of bile leak, and there was none. There was some ooze from the dissected node of Calot low; we manage this by removing part of the lymph node, and then placing some Surgicel in the recesses of this area. Again, the clips on the cystic duct, the cystic artery in 2 locations were all in good position. At this point we felt the operation was complete. The subcutaneous tissue was then anesthetized with quarter percent Marcaine Sponge and needle counts are correct. All ports removed under direct visualization pneumoperitoneum evacuated, and 5 mm port wounds closed with 3-0 Vicryl suture, as well as 0 Vicryl at the supraumbilical port site, and, benzoin and Steri-Strips. The patient was extubated, and taken to the recovery room in stable condition.
[2018-04-14] MEDS: FENTANYL CITRATE INJ/PF 100 MCG/2 ML AMPUL ONE ×2 (18:17→18:22)
[2018-04-14] MEDS ORDERED: KETOROLAC TROMETHAMINE INJ/PF 30 MG/1 ML SDV ONE (19:07)
[2018-04-15] MEDS: KETOROLAC TROMETHAMINE INJ/PF 30 MG/1 ML SDV IV PRN ×3 (02:51→14:53)
[2018-04-15] MEDS ORDERED: ACETAMINOPHEN 1,000 MG/100 ML RTUPB IV PRN (10:04)
[2018-04-15] MEDS: LEVALBUTEROL HCL NEB 1.25 MG/3 ML AMPUL NEB PRN ×2 (12:14→18:34)
--- NOTE | 2018-04-15 19:02 | PDOC PROGRESS REPORT ---
Subjective Progress Note for:: 04/15/18 Subjective:: abdominal pains radiating to shoulders Difficulty breathing because of secretions. She smokes almost a pack a day for 23 years. Reason For Visit: ACUTE CHOLECYSTITIS WITH CHOLELITHIASIS Physical Exam Vital Signs: Temp Pulse Resp BP Pulse Ox 98.8 F 80 18 116/66 100 04/15/18 16:14 04/15/18 18:34 04/15/18 18:34 04/15/18 16:14 04/15/18 18:34 Intake & Output 04/14/18 04/15/18 04/16/18 06:59 06:59 06:59 Intake Total 3400 Output Total 1775 Balance 1625 Weight 82.6 kg Exam: Abdomen is soft. Incisions dressings are clean and dry Appears short of breath Results Laboratory Results: 04/14/18 09:02 04/14/18 09:02 Impressions: Abdomen/Pelvis CT 04/14/18 00:00 IMPRESSION: 1. Small gallstones in the gallbladder fundus with mild gallbladd er wall thickening and pericholecystic fluid. Findings are concerning for acute cholecystitis. The common bile duct is prominent to the ampulla without evidence of obstructing lesion. 2. Normal appendix in the right lower quadrant. Abdomen Ultrasound 04/14/18 12:52 IMPRESSION: GALLSTONES. THE LARGEST CALCULUS IN THE GALLBLADDER NECK MEASURES 1.3 CM. GALLBLADDER WALL THICKENING AND PERICHOLECYSTIC FLUID. FINDINGS CONCERNING FOR ACUTE CHOLECYSTITIS. Assessment & Plan - Time Time Spent with patient: 15-24 minutes - Inpatient Certification Medical Necessity: Need For IV Fluids, Need for Pain Control, Risk of Complication if Not Cared For in Hospital - Plan Summary Plan Summary: Breathing treatments with nebulizer Pain mx Increase po intake not ready for discharge today
--- NOTE | 2018-04-15 19:50 | RADIOLOGY REPORT (SQ) ---
EXAM DESCRIPTION: CHEST 2 VIEWS COMPLETED DATE/TIME: 04/15/2018 7:40 pm REASON FOR STUDY: R/o pneumonia COMPARISON: 12/03/2013 EXAM PARAMETERS: NUMBER OF VIEWS: two views TECHNIQUE: Digital Frontal and Lateral radiographic views of the chest acquired. RADIATION DOSE: NA LIMITATIONS: none FINDINGS: LUNGS AND PLEURA: No opacities, masses or pneumothorax. No pleural effusion. MEDIASTINUM AND HILAR STRUCTURES: No masses or contour abnormalities. HEART AND VASCULAR STRUCTURES: Heart normal size. No evidence for failure. BONES: No acute findings. HARDWARE: None in the chest. OTHER: No other significant finding. IMPRESSION: NO ACUTE RADIOGRAPHIC FINDING IN THE CHEST. TECHNICAL DOCUMENTATION: JOB ID: [id number] [email or web address]- All Rights Reserved Reading location - IP/workstation name: [email or web address]
[2018-04-16] MEDS: KETOROLAC TROMETHAMINE INJ/PF 30 MG/1 ML SDV IV PRN ×2 (03:52→11:40)
[2018-04-16 11:43] VITALS: BP 121/71
--- NOTE | 2018-04-16 13:47 | DISCHARGE SUMMARY E ---
Discharge Summary NAME: JOLEEN MONTENEGRO : 1980 AGE: 37Y ADMITTED: 04/14/2018 DISCHARGED: 04/16/2018 PROCEDURE DONE: Done 04/14/2018, laparoscopic cholecystectomy. SURGEON: Dr. Monk. HOSPITAL COURSE: This is a 37-year-old female with severe abdominal pains and noted to have acute calculous cholecystitis on ultrasound. She then underwent laparoscopic cholecystectomy on 04/14/[address] Monk for acute calculous cholecystitis. Postoperatively the patient did quite well. First postoperative day she had considerable amount of incisional pains. On the day of discharge on 04/16/2018, patient able to ambulate well and tolerate soft diet. She was then discharged improved on 04/16/2018 with above final diagnosis. Patient to be followed in the surgical clinic in 2 weeks. Note is given to the patient to go back to light duty work after 2 weeks and resume non-restriction work after a total of 4 weeks. Patient given a prescription for Toradol 10 mg p.o. q.8 hours p.r.n. for pain. DICTATING PHYSICIAN: MEGA MEYER M.D. [id number] PHY#: [id number] ID: [id number] JOB#: [id number] ACCT: [id number] cc:Dara SOFIA M.D. >
== END 2018-04-16 13:18 | disposition home or self-care (01) ==
LOC: ER 08:11 → EH 15:46 → INTOOBSV 15:46 → 2N 19:40
PROVIDERS: ADMIT Surgery; ATTEND Surgery
PROC: 0FT44ZZ Resection of Gallbladder, Percutaneous Endoscopic Approach (ICD-10-PCS; principal; 2018-04-14 15:45)
PROC: 3E01340 Introduction of Influenza Vaccine into Subcutaneous Tissue, Percutaneous Approach (ICD-10-PCS; 2018-04-16)
DX: K80.10 Calculus of gallbladder with chronic cholecystitis without obstruction (principal); K21.9 Gastro-esophageal reflux disease without esophagitis; G89.18 Other acute postprocedural pain; F17.200 Nicotine dependence, unspecified, uncomplicated; G43.909 Migraine, unspecified, not intractable, without status migrainosus; R06.00 Dyspnea, unspecified; Z79.899 Other long term (current) drug therapy; Z90.710 Acquired absence of both cervix and uterus; Z85.41 Personal history of malignant neoplasm of cervix uteri; Z23 Encounter for immunization
CPT/HCPCS: 93005; 99285; 96361; 96374; 96375; 36415; 83690; 85025; 80053; 81001; 88304 ×2; 71046; 76705; 93976; 74177; 90686; 93010; 94640 ×2; 47562; G0378 ×3; G0008; J2250; J0690; J3490 ×6; J1100; J3010; J1885 ×3; J2270; J0330; J2405; J7030; J2704; S0028; J0131 ×2; 790; 90471

== ENCOUNTER 2018-08-04 08:08 | Emergency (ER) | payer MEDICAID ==
[2018-08-04] MEDS ORDERED: NORMAL SALINE 1000 ML 1,000 ML IV ONE (08:47)
[2018-08-04 09:11] LABS: ABSOLUTE BASOPHILS # (AUTO) 0.1 10^3/uL (0.0-0.2); ABSOLUTE LYMPHOCYTES (AUTO) 1.8 10^3/uL (0.5-4.7); ABSOLUTE MONOCYTES (AUTO) 1.4 10^3/uL (0.1-1.4); ABSOLUTE NEUT (AUTO) 7.3 10^3/uL (1.7-8.2); BASOPHILS % (AUTO) 0.6 % (0-2); EOSINOPHILS % (AUTO) 0.4 % (0-6); HEMOGLOBIN 14.4 g/dL (12.0-15.5); LYMPHOCYTES % (AUTO) 16.8 % (13-45); MEAN CORPUSCULAR HEMOGLOBIN 30.7 pg (27.0-33.4); MEAN CORPUSCULAR HGB CONC 34.2 g/dL (32.0-36.0); MEAN CORPUSCULAR VOLUME 90 fl (80-97); MONOCYTES % (AUTO) 13.2 % (3-13); PLATELET COUNT 305 10^3/uL (150-450); RED BLOOD COUNT 4.69 10^6/uL (3.72-5.28); RED CELL DISTRIBUTION WIDTH 13.3 % (11.5-14.0); TOTAL CELLS COUNTED % (AUTO) 100 %; WHITE BLOOD COUNT 10.6 10^3/uL (4.0-10.5)
--- NOTE | 2018-08-04 09:19 | RADIOLOGY REPORT (SQ) ---
EXAM DESCRIPTION: CHEST 2 VIEWS COMPLETED DATE/TIME: 08/04/2018 9:00 am REASON FOR STUDY: cough COMPARISON: 04/15/2018 TECHNIQUE: Frontal and lateral radiographic views of the chest acquired. NUMBER OF VIEWS: Two view. LIMITATIONS: None. FINDINGS: LUNGS AND PLEURA: No opacities, masses or pneumothorax. No pleural effusion. MEDIASTINUM AND HILAR STRUCTURES: No masses or contour abnormalities. HEART AND VASCULAR STRUCTURES: Heart normal size. No evidence for failure. BONES: No acute findings. HARDWARE: None in the chest. OTHER: No other significant finding. IMPRESSION: NO SIGNIFICANT RADIOGRAPHIC FINDING IN THE CHEST. TECHNICAL DOCUMENTATION: JOB ID: [id number] [email or web address] All Rights Reserved Reading location - IP/workstation name: [email or web address]
[2018-08-04 09:33] LABS: APPEARANCE,URINE SLIGHTLY-CLOUDY; BILIRUBIN,URINE NEGATIVE (NEGATIVE); COLOR,URINE YELLOW; GLUCOSE, URINE NEGATIVE (NEGATIVE); KETONES,URINE TRACE mg/dL (NEGATIVE); LEUKOCYTE ESTERASE,URINE TRACE (NEGATIVE); NITRITE,URINE NEGATIVE (NEGATIVE); PROTEIN,URINE NEGATIVE (NEGATIVE); URINE SPECIFIC GRAVITY 1.013; UROBILINOGEN,URINE NEGATIVE mg/dL (<2.0)
[2018-08-04] MEDS ORDERED: ACETAMINOPHEN 325 MG TABLET PO ONE (10:26)
[2018-08-04 11:08] LABS: ALANINE AMINOTRANSFERASE 19 U/L (9-52); ALBUMIN 3.9 g/dL (3.5-5.0); ALKALINE PHOSPHATASE 48 U/L (38-126); ANION GAP 12 (5-19); ASPARTATE AMINO TRANSFERASE 16 U/L (14-36); BILIRUBIN,DIRECT 0.2 mg/dL (0.0-0.4); BILIRUBIN,TOTAL 0.5 mg/dL (0.2-1.3); BLOOD UREA NITROGEN 11 mg/dL (7-20); CALCIUM 9.4 mg/dL (8.4-10.2); CARBON DIOXIDE 23 mmol/L (22-30); CHLORIDE 105 mmol/L (98-107); GLUCOSE 94 mg/dL (75-110); LIPASE 57.9 U/L (23-300); POTASSIUM 4.5 mmol/L (3.6-5.0); SODIUM 139.7 mmol/L (137-145); TOTAL PROTEIN 6.9 g/dL (6.3-8.2)
[2018-08-04] MEDS ORDERED: KETOROLAC TROMETHAMINE INJ/PF 30 MG/1 ML SDV IV ONE (13:44)
--- NOTE | 2018-08-04 13:48 | ER Document Report ---
ED General - General Chief Complaint: Low Back Pain Stated Complaint: FLANK PAIN Time Seen by Provider: 08/04/18 08:35 TRAVEL OUTSIDE OF THE [place] IN LAST 30 DAYS: No - HPI Notes: Patient is a 37-year-old female presents emergency department for evaluation. She states she has not been feeling well for the last 5 days. She states she started having "stabbing kidney pains" and aches all over. She had subjective fevers but is never actually taken her temperature. She states she did not think she had a temperature today. She is had some nausea but no emesis. She also complains of a headache. It is not the worst headache of her life. Eating and drinking normally. Urinating without difficulty. - Related Data Allergies/Adverse Reactions: No Known Allergies Allergy (Verified 04/14/18 16:25) Past Medical History - General Information source: Patient - Social History Smoking Status: Current Every Day Smoker Family History: Reviewed & Not Pertinent Patient has suicidal ideation: No Patient has homicidal ideation: No - Past Medical History Cardiac Medical History: Denies: Hx Congestive Heart Failure, Hx Coronary Artery Disease, Hx Heart Attack, Hx Hypertension Pulmonary Medical History: Denies: Hx Asthma, Hx Bronchitis, Hx COPD, Hx Pneumonia, Hx Tuberculosis Neurological Medical History: Reports: Hx Migraine. Denies: Hx Seizures Renal/ Medical History: Denies: Hx End Stage Renal Disease, Hx Kidney Stones, Hx Peritoneal Dialysis Malignancy Medical History: Reports: Hx Cervical Cancer GI Medical History: Denies: Hx Cirrhosis, Hx Gastroesophageal Reflux Disease, Hx Ulcer Musculoskeletal Medical History: Denies Hx Arthritis, Denies Hx Multiple Sclerosis Psychiatric Medical History: Denies: Hx Bipolar Disorder, Hx Depression, Hx Schizophrenia Past Surgical History: Reports: Hx Hysterectomy, Other - Partial hysterectomy - Immunizations Hx Diphtheria, Pertussis, Tetanus Vaccination: Yes Review of Systems - Review of Systems Constitutional: See HPI EENT: No symptoms reported Cardiovascular: No symptoms reported Respiratory: No symptoms reported Gastrointestinal: No symptoms reported Genitourinary: No symptoms reported Female Genitourinary: No symptoms reported Musculoskeletal: No symptoms reported Skin: No symptoms reported Neurological/Psychological: No symptoms reported Physical Exam - Vital signs Vitals: Temp Pulse Resp BP Pulse Ox 97.6 F 84 16 111/91 H 97 08/04/18 08:14 08/04/18 08:14 08/04/18 08:14 08/04/18 08:14 08/04/18 08:14 - Notes Notes: Vital signs reviewed, please refer to chart. Head is normocephalic, atraumatic. Pupils equal round, reactive to light. Neck is supple without meningismus. Heart is regular rate and rhythm. Lungs are clear to auscultation bilaterally. Abdomen is soft, nontender, normoactive bowel sounds throughout. No CVA tenderness. Examination of the spine is no midline tenderness step-off. She does have some paraspinal musculature tenderness from T12 and L1-2 bilaterally. Extremities without cyanosis, clubbing. Posterior calves are nontender. Peripheral pulses are equal. Skin is warm and dry. Patient is awake, alert, neurological exam is nonfocal. Course - Re-evaluation Re-evalutation: 08/04/18 13:45 Patient presents emergency department for evaluation. She has multiple vague complaints. She states she been febrile for several days. Cultures were obtained. Laboratory vesication's were largely unremarkable. Imaging of her chest failed to reveal any acute abnormality. Urinalysis failed to reveal any s igns of infection. She was treated with fluids, Toradol, Tylenol. She is feeling somewhat improved. I do suspect that the lower back pain she is having is musculoskeletal in nature. We will treat her with muscle relaxants. She is to follow-up with primary care, return to the emergency department with worsening or new concerning symptoms of any sort. 08/04/18 13:46 - Vital Signs Vital signs: Temp Pulse Resp BP Pulse Ox 97.6 F 84 19 100/80 96 08/04/18 08:14 08/04/18 08:14 08/04/18 13:01 08/04/18 13:01 08/04/18 13:01 - Laboratory Result Diagrams: 08/04/18 08:57 08/04/18 10:36 Laboratory results interpreted by me: 08/04/18 08/04/18 08:30 08:57 WBC 10.6 H Monocytes % 13.2 H Urine Ketones TRACE H Ur Leukocyte Esterase TRACE H Urine Ascorbic Acid 20 H Discharge - Discharge Clinical Impression: Generalized body aches Low back pain Qualifiers: Chronicity: acute Back pain laterality: bilateral Sciatica presence: without sciatica Qualified Code(s): M54.5 - Low back pain Condition: Stable Disposition: HOME, SELF-CARE Instructions: Low Back Pain ([facility]) Additional Instructions: Moist heat to the painful area. Stay well-hydrated with small, frequent sips of fluids. Take muscle relaxers as needed for pain. Follow-up with your primary care physician this week. Return to the emergency department with worsening or new concerning symptoms. Forms: Smoking Cessation Education
[2018-08-04 14:13] VITALS: BP 144/77
== END 2018-08-04 14:11 | disposition home or self-care (01) ==
LOC: ER 08:08
DX: M79.10 Myalgia, unspecified site (principal); M54.5 Low back pain; R10.9 Unspecified abdominal pain; R50.9 Fever, unspecified; R11.0 Nausea; R51 Headache; F17.200 Nicotine dependence, unspecified, uncomplicated
CPT/HCPCS: 99284; 96361; 96374; 36415; 87040; 83690; 85025; 81025; 80053; 81001; 71046; J3490; J1885; J7030

== ENCOUNTER 2018-12-12 07:24 | Emergency (ER) | payer SELFPAY ==
[2018-12-12 07:36] VITALS: BP 129/82
--- NOTE | 2018-12-12 07:55 | ER Document Report ---
ED General - General Chief Complaint: Congestion Stated Complaint: CONGESTION Time Seen by Provider: 12/12/18 07:54 TRAVEL OUTSIDE OF THE [place] IN LAST 30 DAYS: No - HPI Patient complains to provider of: sinus congestion Notes: 38 y/o presenting to ED for sinus congestion no fever or chills she has a h/o tobacco abuse and wheezing and notes that that is acting up as well no productive cough she has tried no medications for her symptoms symptoms ongoing for approximately 2 weeks she notes her sinuses are so stopped up that she cannot sleep due to throbbing headache - Related Data Allergies/Adverse Reactions: No Known Allergies Allergy (Verified 04/14/18 16:25) Past Medical History - Social History Smoking Status: Current Every Day Smoker Frequency of alcohol use: Heavy Drug Abuse: None Family History: Reviewed & Not Pertinent Patient has suicidal ideation: No Patient has homicidal ideation: No - Past Medical History Cardiac Medical History: Denies: Hx Congestive Heart Failure, Hx Coronary Artery Disease, Hx Heart Attack, Hx Hypertension Pulmonary Medical History: Denies: Hx Asthma, Hx Bronchitis, Hx COPD, Hx Pneumonia, Hx Tuberculosis Neurological Medical History: Reports: Hx Migraine. Denies: Hx Seizures, Hx Parkinson's Disease Renal/ Medical History: Denies: Hx End Stage Renal Disease, Hx Kidney Stones, Hx Peritoneal Dialysis Malignancy Medical History: Reports: Hx Cervical Cancer GI Medical History: Denies: Hx Cirrhosis, Hx Gastroesophageal Reflux Disease, Hx Ulcer Musculoskeletal Medical History: Denies Hx Arthritis, Denies Hx Multiple Sclerosis Psychiatric Medical History: Denies: Hx Bipolar Disorder, Hx Depression, Hx Schizophrenia Past Surgical History: Reports: Hx Hysterectomy, Other - Partial hysterectomy - Immunizations Hx Diphtheria, Pertussis, Tetanus Vaccination: Yes Review of Systems - Review of Systems Constitutional: No symptoms reported. denies: Fever EENT: Ear pain, Nose congestion, Sinus pressure. denies: Ear discharge, Sinus discharge, Throat pain, Difficulty swallowing Cardiovascular: No symptoms reported Respiratory: Cough, Wheezing. denies: Short of breath, Sputum Gastrointestinal: No symptoms reported Genitourinary: No symptoms reported Female Genitourinary: No symptoms reported Musculoskeletal: No symptoms reported Skin: No symptoms reported Hematologic/Lymphatic: No symptoms reported Neurological/Psychological: No symptoms reported Physical Exam - Vital signs Vitals: Temp Pulse Resp BP Pulse Ox 97.9 F 82 20 129/82 H 96 12/12/18 07:35 12/12/18 07:35 12/12/18 07:35 12/12/18 07:35 12/12/18 07:35 Interpretation: Normal - General General appearance: Appears well, Alert - HEENT Head: Normocephalic, Atraumatic Eyes: Normal Pupils: PERRL Tympanic membrane: Normal Sinus: Frontal, Maxillary, Tenderness Nasal: Normal. No: Bloody discharge, Clear rhinorrhea Pharynx: Normal. No: Erythema, Exudate, Tonsillar hypertrophy, Uvular edema - Respiratory Respiratory status: No respiratory distress Chest status: Nontender Breath sounds: Wheezing - mild expiratory wheezes but good air movement Chest palpation: Normal - Cardiovascular Rhythm: Regular Heart sounds: Normal auscultation Murmur: No - Abdominal Inspection: Normal Distension: No distension Bowel sounds: Normal Tenderness: Nontender Organomegaly: No organomegaly - Back Back: Normal, Nontender - Extremities General upper extremity: Normal inspection, Nontender, Normal color, Normal ROM, Normal temperature General lower extremity: Normal inspection, Nontender, Normal color, Normal ROM, Normal temperature, Normal weight bearing. No: Daquan's sign - Neurological Neuro grossly intact: Yes Cognition: Normal Orientation: AAOx4 Jhon Coma Scale Eye Opening: Spontaneous Jhon Coma Scale Verbal: Oriented Jhon Coma Scale Motor: Obeys Commands Jhon Coma Scale Total: 15 Speech: Normal Motor strength normal: LUE, RUE, LLE, RLE Sensory: Normal - Psychological Associated symptoms: Normal affect, Normal mood - Skin Skin Temperature: Warm Skin Moisture: Dry Skin Color: Normal Course - Re-evaluation Re-evalutation: 12/12/18 08:10 generally well appearing w/ mild wheezing on exam decadron shot and rx for zyrtec and albuterol recommend pcp follow up for further care - Vital Signs Vital signs: Temp Pulse Resp BP Pulse Ox 97.9 F 82 20 129/82 H 96 12/12/18 07:35 12/12/18 07:35 12/12/18 07:35 12/12/18 07:35 12/12/18 07:35 Discharge - Discharge Clinical Impression: Sinus congestion, Wheezing, Tobacco abuse Condition: Stable Disposition: HOME, SELF-CARE Instructions: Sinusitis ([facility]) Additional Instructions: please use inhaler and zyrtec as prescribed return to the ED with worsening of symptoms consider smoking cessation follow up with a primary doctor as an outpatient Prescriptions: Albuterol Sulfate [Ventolin Hfa 8 gm Mdi (1 Mdi/ER Disp)] 2 puff IH ASDIR PRN #1 inhaler PRN Reason: Cetirizine HCl [Zyrtec 10 mg Tablet] 1 tab PO DAILY #14 tablet Forms: Smoking Cessation Education Referrals: ARNOLDO LEVI MD [[facility]] - Follow up as needed
[2018-12-12] MEDS ORDERED: DEXAMETHASONE SOD PHOS INJ 10 MG/1 ML VIAL IM ONE (08:05)
== END 2018-12-12 08:33 | disposition home or self-care (01) ==
LOC: ER 07:24
DX: R68.89 Other general symptoms and signs (principal); R06.2 Wheezing; R09.81 Nasal congestion; F17.200 Nicotine dependence, unspecified, uncomplicated; Z85.41 Personal history of malignant neoplasm of cervix uteri; Z90.710 Acquired absence of both cervix and uterus
CPT/HCPCS: 99283; 96372; J1100

== ENCOUNTER 2019-02-18 14:27 | Emergency (ER) | payer SELFPAY ==
--- NOTE | 2019-02-18 15:04 | ER Document Report ---
ED Medical Screen (RME) - General TRAVEL OUTSIDE OF THE [place] IN LAST 30 DAYS: No <CRISSY BECKER - Last Filed: 02/18/19 15:02> <JAMIN LEARY - Last Filed: 02/18/19 18:42> - General Stated Complaint: ABDOMINAL PAIN Time Seen by Provider: 02/18/19 14:58 - HPI Notes: 02/18/19 15:02 Patient is a 38-year-old female with a history of cholecystectomy as well as partial hysterectomy who presents complaining of mid abdominal pain that feels like someone is reaching and twisting that does not radiate which began this morning and has been constant. Patient is unaware of anything else that worsens or improves her symptoms, but has had decreased p.o. intake and no appetite. She is urinating normally and having normal bowel movements. No other vaginal bleeding, odor, or discharge. Denies drug allergies. No fever, chest pain, shortness of breath. No back pain. I have treated and performed a rapid initial assessment of this patient. A comprehensive ED assessment and evaluation of the patient, analysis of test results and completion of medical decision making process will be conducted by additional ED providers. PHYSICAL EXAMINATION: GENERAL: Well-appearing, well-nourished and in no acute distress. A&Ox4. Answers questions appropriately. Abdomen: Limited exam in triage, but patient does have tenderness to the mid to epigastric abdomen. (CRISSY BECKER) - Related Data Allergies/Adverse Reactions: acetaminophen [From Percocet] Adverse Reaction (Verified 02/18/19 15:03) oxycodone [From Percocet] Adverse Reaction (Verified 02/18/19 15:03) Past Medical History - Past Medical History Cardiac Medical History: Denies: Hx Congestive Heart Failure, Hx Coronary Artery Disease, Hx Heart Attack, Hx Hypertension Pulmonary Medical History: Denies: Hx Asthma, Hx Bronchitis, Hx COPD, Hx Pneumonia, Hx Tuberculosis Neurological Medical History: Reports: Hx Migraine. Denies: Hx Seizures, Hx Parkinson's Disease Renal/ Medical History: Denies: Hx End Stage Renal Disease, Hx Kidney Stones, Hx Peritoneal Dialysis Malignancy Medical History: Reports: Hx Cervical Cancer GI Medical History: Denies: Hx Cirrhosis, Hx Gastroesophageal Reflux Disease, Hx Ulcer Musculoskeltal Medical History: Denies Hx Arthritis, Denies Hx Multiple Sclerosis Psychiatric Medical History: Denies: Hx Bipolar Disorder, Hx Depression, Hx Schizophrenia Past Surgical History: Reports: Hx Hysterectomy, Other - Partial hysterectomy - Immunizations Hx Diphtheria, Pertussis, Tetanus Vaccination: Yes <CRISSY BECKER - Last Filed: 02/18/19 15:02> Physical Exam - Vital signs Vitals: Temp Pulse Resp BP Pulse Ox 98.0 F 71 18 116/66 97 02/18/19 14:36 02/18/19 14:36 02/18/19 14:36 02/18/19 14:36 02/18/19 14:36 Course - Laboratory Result Diagrams: 02/18/19 15:22 02/18/19 15:22 <JAMIN LEARY - Last Filed: 02/18/19 18:42> - Vital Signs Vital signs: Temp Pulse Resp BP Pulse Ox 98.6 F 76 17 117/76 100 02/18/19 18:08 02/18/19 18:08 02/18/19 18:08 02/18/19 18:08 02/18/19 18:08 - Laboratory Laboratory results interpreted by me: 02/18/19 15:22 Chloride 108 H Alkaline Phosphatase 35 L Doctor's Discharge <CRISSY BECKER - Last Filed: 02/18/19 15:02> <JAMIN LEARY - Last Filed: 02/18/19 18:42> - Discharge Clinical Impression: Abdominal pain, Gastritis Condition: Stable Disposition: HOME, SELF-CARE Instructions: Abdominal Pain ([facility]), Gastritis ([facility]) Prescriptions: Sucralfate [Carafate 1 gm Tablet] 1 gm PO ACHS #120 tablet Omeprazole 20 mg PO DAILY #60 capsule.dr Forms: Smoking Cessation Education
[2019-02-18 15:34] LABS: ABSOLUTE EOSINOPHILS # (AUTO) 0.2 10^3/uL (0.0-0.6); ABSOLUTE LYMPHOCYTES (AUTO) 2.8 10^3/uL (0.5-4.7); ABSOLUTE MONOCYTES (AUTO) 0.7 10^3/uL (0.1-1.4); BASOPHILS % (AUTO) 0.6 % (0-2); HEMATOCRIT 42.4 % (36.0-47.0); HEMOGLOBIN 14.6 g/dL (12.0-15.5); LYMPHOCYTES % (AUTO) 36.2 % (13-45); MEAN CORPUSCULAR HEMOGLOBIN 32.3 pg (27.0-33.4); MEAN CORPUSCULAR HGB CONC 34.4 g/dL (32.0-36.0); MEAN CORPUSCULAR VOLUME 94 fl (80-97); MONOCYTES % (AUTO) 8.7 % (3-13); PLATELET COUNT 326 10^3/uL (150-450); RED BLOOD COUNT 4.52 10^6/uL (3.72-5.28); SEGMENTED NEUTROPHILS % (AUTO) 52.5 % (42-78); TOTAL CELLS COUNTED % (AUTO) 100 %; WHITE BLOOD COUNT 7.6 10^3/uL (4.0-10.5)
[2019-02-18 15:48] LABS: APPEARANCE,URINE SLIGHTLY-CLOUDY; BILIRUBIN,URINE NEGATIVE (NEGATIVE); COLOR,URINE YELLOW; GLUCOSE, URINE NEGATIVE (NEGATIVE); KETONES,URINE NEGATIVE (NEGATIVE); PROTEIN,URINE NEGATIVE (NEGATIVE); URINE SPECIFIC GRAVITY 1.021; UROBILINOGEN,URINE NEGATIVE mg/dL (<2.0)
[2019-02-18 16:37] LABS: ALBUMIN 4.1 g/dL (3.5-5.0); ALKALINE PHOSPHATASE 35 U/L (38-126); ANION GAP 6 (5-19); ASPARTATE AMINO TRANSFERASE 25 U/L (14-36); BILIRUBIN,DIRECT 0.1 mg/dL (0.0-0.4); BILIRUBIN,TOTAL 0.4 mg/dL (0.2-1.3); BLOOD UREA NITROGEN 13 mg/dL (7-20); CALCIUM 9.5 mg/dL (8.4-10.2); CARBON DIOXIDE 24 mmol/L (22-30); CHLORIDE 108 mmol/L (98-107); GLUCOSE 91 mg/dL (75-110); POTASSIUM 4.7 mmol/L (3.6-5.0)
--- NOTE | 2019-02-18 18:23 | RADIOLOGY REPORT (SQ) ---
EXAM DESCRIPTION: CT ABD/PELVIS WITH IV ONLY COMPLETED DATE/TIME: 02/18/2019 6:05 pm REASON FOR STUDY: mid abd pain COMPARISON: 02/15/2018 TECHNIQUE: CT scan of the abdomen and pelvis performed using helical scanning technique with dynamic intravenous contrast injection. No oral contrast. Images reviewed with lung, soft tissue, and bone windows. Reconstructed coronal and sagittal MPR images reviewed. Delayed images for evaluation of the urinary system also acquired. All images stored on PACS. All CT scanners at this facility use dose modulation, iterative reconstruction, and/or weight based d osing when appropriate to reduce radiation dose to as low as reasonably achievable (ALARA). [facility]: Dose Right [facility]: CareDose [facility]: Dose Right [facility]: Teradose 4D [facility]: RFI Informatique CONTRAST TYPE AND DOSE: contrast/concentration: Isovue 350.00 mg/ml; Total Contrast Delivered: 88.0 ml; Total Saline Delivered: 30.0 ml RENAL FUNCTION: None required. The patient is less than 50 years old. RADIATION DOSE: CT Rad equipment meets quality standard of care and radiation dose reduction techniq ues were employed. CTDIvol: 10.0 - 12.8 mGy. DLP: 1181 mGy-cm.. LIMITATIONS: None. FINDINGS: LOWER CHEST: No significant findings. No nodules or infiltrates. LIVER: Normal size. No masses. No dilated ducts. SPLEEN: Normal size. No focal lesions. PANCREAS: No masses. No significant calcifications. No adjacent inflammation or peripancreatic fluid collections. Pancreatic duct not dilated. GALLBLADDER: Surgically absent. ADRENAL GLANDS: No significant masses or asymmetry. RIGHT KIDNEY AND URETER: No solid masses. No significant calcifications. No hydronephrosis or hyd roureter. LEFT KIDNEY AND URETER: No solid masses. No significant calcifications. No hydronephrosis or hydr oureter. AORTA AND VESSELS: No aneurysm. No dissection. Renal arteries, SMA, celiac without stenosis. RETROPERITONEUM: No retroperitoneal adenopathy, hemorrhage or masses. BOWEL AND PERITONEAL CAVITY: No masses or inflammatory changes. No free fluid or peritoneal masses. APPENDIX: Normal. PELVIS: No mass. No free fluid. Normal bladder. ABDOMINAL WALL: No masses. No hernias. BONES: No significant or acute findings. OTHER: No other significant finding. IMPRESSION: NO SIGNIFICANT OR ACUTE FINDING IN THE ABDOMEN OR PELVIS ON CT SCAN WITH IV CONTRAST. TECHNICAL DOCUMENTATION: JOB ID: [id number] Quality ID # [id number]: Final reports with documentation of one or more dose reduction techniques (e.g., Au tomated exposure control, adjustment of the mA and/or kV according to patient size, use of iterative reconstruction technique) 2010 [employer]- All Rights Reserved Reading location - IP/workstation name: [email or web address]
[2019-02-18] MEDS ORDERED: PANTOPRAZOLE SODIUM 40 MG TABLET.DR PO ONE (18:40)
[2019-02-18] MEDS ORDERED: SUCRALFATE 1 GM TABLET PO ONE (18:40)
[2019-02-18 19:00] VITALS: BP 112/75
--- NOTE | 2019-02-19 01:44 | ER Document Report ---
Entered by HASEEB YEE SCRIBE 02/18/19 [id number] Acting as scribe for:JAMIN LEARY DO ED GI/ - General Chief Complaint: Epigastric Pain Stated Complaint: ABDOMINAL PAIN Time Seen by Provider: 02/18/19 14:58 Mode of Arrival: Ambulatory Information source: Patient Notes: This 38 year old female patient presents to the emergency department today with complaints of abdominal pain. Patient has the bedside table pulled over her in bed with a tray full of food that she is actively consuming stating she is "just really hungry". Patient asked if her abdominal pain had subsided since arrival here as the appetite seemed to come back, to which she states "no, it is the same pain I have had all day, like someone is grabbing and twisting my guts". Patient denies nausea, vomiting, or diarrhea. TRAVEL OUTSIDE OF THE [place] IN LAST 30 DAYS: No - Related Data Allergies/Adverse Reactions: acetaminophen [From Percocet] Adverse Reaction (Verified 02/18/19 15:03) oxycodone [From Percocet] Adverse Reaction (Verified 02/18/19 15:03) Past Medical History - General Information source: Patient - Social History Smoking Status: Current Every Day Smoker Cigarette use (# per day): Yes Frequency of alcohol use: None Drug Abuse: None Lives with: Family Family History: Reviewed & Not Pertinent Patient has suicidal ideation: No Patient has homicidal ideation: No Neurological Medical History: Reports: Hx Migraine Malignancy Medical History: Reports: Hx Cervical Cancer Past Surgical History: Reports: Hx Cholecystectomy, Hx Hysterectomy, Other - Partial hysterectomy - Immunizations Hx Diphtheria, Pertussis, Tetanus Vaccination: Yes Review of Systems - Review of Systems Constitutional: No symptoms reported EENT: No symptoms reported Cardiovascular: No symptoms reported Respiratory: No symptoms reported Gastrointestinal: See HPI, Abdominal pain. denies: Diarrhea, Nausea, Vomiting Genitourinary: denies: Dysuria Female Genitourinary: No symptoms reported Musculoskeletal: No symptoms reported Skin: No symptoms reported Hematologic/Lymphatic: No symptoms reported Neurological/Psychological: No symptoms reported -: Yes All other systems reviewed and negative Physical Exam - Vital signs Vitals: Temp Pulse Resp BP Pulse Ox 98.0 F 71 18 116/66 97 02/18/19 14:36 02/18/19 14:36 02/18/19 14:36 02/18/19 14:36 02/18/19 14:36 Interpretation: Normal - General General appearance: Appears well, Alert - HEENT Head: Normocephalic, Atraumatic Eyes: Normal Pupils: PERRL - Respiratory Respiratory status: No respiratory distress Chest status: Nontender Breath sounds: Normal Chest palpation: Normal - Cardiovascular Rhythm: Regular Heart sounds: Normal auscultation Murmur: No - Abdominal Inspection: Normal Distension: No distension Bowel sounds: Normal Tenderness: Nontender Organomegaly: No organomegaly - Back Back: Normal, Nontender - Extremities General upper extremity: Normal inspection, Nontender, Normal color, Normal ROM, Normal temperature General lower extremity: Normal inspection, Nontender, Normal color, Normal ROM, Normal temperature, Normal weight bearing. No: Daquan's sign - Neurological Neuro grossly intact: Yes Cognition: Normal Orientation: AAOx4 [place] Coma Scale Eye Opening: Spontaneous Jhon Coma Scale Verbal: Oriented Jhon Coma Scale Motor: Obeys Commands Jhon Coma Scale Total: 15 Speech: Normal Motor strength normal: LUE, RUE, LLE, RLE Sensory: Normal - Psychological Associated symptoms: Normal affect, Normal mood - Skin Skin Temperature: Warm Skin Moisture: Dry Skin Color: Normal Course - Re-evaluation Re-evalutation: 02/18 Patient appears well. She is eating in the room. No acute findings on blood work or urine. States that she is hungry. Possible gastritis given the symptoms that the patient has had. Regardless, she has no evidence for any emergent abdominal catastrophe and can be discharged home to follow-up with her doctor. Stable for discharge. Return if any worsening or concerning symptoms. - Vital Signs Vital signs: Temp Pulse Resp BP Pulse Ox 98.1 F 78 16 112/75 100 02/18/19 18:58 02/18/19 18:58 02/18/19 18:58 02/18/19 18:58 02/18/19 18:58 - Laboratory Result Diagrams: 02/18/19 15:22 02/18/19 15:22 Laboratory results interpreted by me: 02/18/19 15:22 Chloride 108 H Alkaline Phosphatase 35 L Discharge - Discharge Clinical Impression: Abdominal pain Qualifiers: Abdominal location: unspecified location Qualified Code(s): R10.9 - Unspecified abdominal pain Gastritis Qualifiers: Gastritis type: unspecified gastritis Chronicity: unspecified Gastritis bleeding: without bleeding Qualified Code(s): K29.70 - Gastritis, unspecified, without bleeding Condition: Stable Disposition: HOME, SELF-CARE Instructions: Abdominal Pain ([facility]), Gastritis ([facility]) Prescriptions: Sucralfate [Carafate 1 gm Tablet] 1 gm PO ACHS #120 tablet Omeprazole 20 mg PO DAILY #60 capsule.dr Forms: Smoking Cessation Education I personally performed the services described in the documentation, reviewed and edited the documentation which was dictated to the scribe in my presence, and it accurately records my words and actions.
== END 2019-02-18 18:58 | disposition home or self-care (01) ==
LOC: ER 14:27
DX: K29.70 Gastritis, unspecified, without bleeding (principal); R10.13 Epigastric pain; F17.210 Nicotine dependence, cigarettes, uncomplicated; Z85.41 Personal history of malignant neoplasm of cervix uteri; Z90.49 Acquired absence of other specified parts of digestive tract; Z90.711 Acquired absence of uterus with remaining cervical stump
CPT/HCPCS: 99284; 36415; 83690; 85025; 81025; 80053; 81001; 74177; J3490